=== PATIENT | male | born 1970 | race Caucasian/White ===

== ENCOUNTER 2023-04-26 14:19 | Emergency (ER) | payer OTHER, SELFPAY ==
[2023-04-26 14:24] VITALS: BP 168/93; PULSE 72; RESP 18; TEMP 36.9; O2SAT 94; BMI 35.9
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
== END 2023-04-26 15:06 | disposition home or self-care (01) ==
PROVIDERS: Emergency Provider Emergency Medicine Emergency Medical Services; Family Provider Internal Medicine; PCP Nurse Practitioner
DX: T23.262A Burn of second degree of back of left hand, initial encounter (principal); X19.XXXA Contact with other heat and hot substances, initial encounter
CPT/HCPCS: 99283